=== PATIENT | female | born 1945 | race Caucasian/White ===

== ENCOUNTER 2022-04-01 07:23 | Inpatient (IN) | payer MEDICARE, MEDICAID ==
[~2022-04-01] VITALS: Ht 162.6 cm; Wt 81.6 kg
[2022-04-01] MEDS ORDERED: CEFAZOLIN SOD 2 GM in D5W 50 ML IV ONE (07:45)
[2022-04-01] MEDS ORDERED: INSULIN REGULAR, HUMAN 100 UNITS/ML, 3 ML VIAL (humuLIN R) SUBCUT PRN (10:45)
[2022-04-01] MEDS ORDERED: METOCLOPRAMIDE HCL 10 MG/2 ML VIAL IVP PRN ×2 (10:45→11:45)
[2022-04-01] MEDS ORDERED: NALOXONE HCL 0.4 MG/ML AMP (NARCAN) IVP PRN ×4 (10:45→11:45)
[2022-04-01] MEDS ORDERED: D5W 1,000 ML IV PRN (10:45)
[2022-04-01] MEDS ORDERED: GLUCOSE (DEXTROSE) ORAL GEL -Adults PO PRN (10:45)
[2022-04-01] MEDS ORDERED: BISACODYL 10 MG/SUPPOSITORY RC PRN (10:45)
[2022-04-01] MEDS ORDERED: DIPHENHYDRAMINE HCL 25 MG CAPSULE PO PRN (10:45)
[2022-04-01] MEDS ORDERED: LACTULOSE 20 GM/30 ML UDC PO PRN (10:45)
[2022-04-01] MEDS ORDERED: ACETAMINOPHEN I.V. 1000 MG 100 ML IV ONE (10:48)
[2022-04-01] MEDS ORDERED: BUPIVACAINE /DEX PF 0.75% SPINAL 2 ML AMP INJ ONE (10:52)
[2022-04-01] MEDS ORDERED: TRANEXAMIC ACID 1,000 MG/10 ML VIAL IV ONE (10:52)
[2022-04-01] MEDS ORDERED: KETOROLAC TROMETHAMINE 30 MG VIAL IVP ONE (10:52)
[2022-04-01] MEDS ORDERED: D5LR 1,000 ML IV.SOLN IV ONE (10:52)
[2022-04-01] MEDS ORDERED: NS IRRIG SOLN 1000 ML IR ONE (10:52)
[2022-04-01] MEDS ORDERED: MIDAZOLAM HCL 5 MG/5 ML VIAL IVP ONE (10:52)
[2022-04-01] MEDS ORDERED: MORPHINE SULFATE 10MG/10ML PF AMP EP ONE (10:52)
[2022-04-01] MEDS ORDERED: BUPIVACAINE /PF 0.25% 30 ML VIAL INJ ONE (10:52)
[2022-04-01] MEDS ORDERED: ONDANSETRON HCL 4 MG/2 ML VIAL IVP ONE (10:52)
[2022-04-01] MEDS ORDERED: BUPIVACAINE /EPINEPHRINE/PF 0.25% 30 ML VIAL INJ ONE (10:52)
[2022-04-01] MEDS ORDERED: NS 1000 ML IV.SOLN IV ONE (10:52)
[2022-04-01] MEDS ORDERED: LORATADINE 10 MG TABLET PO PRN (11:00)
[2022-04-01] MEDS ORDERED: oxyCODONE HCL 5 MG TABLET PO PRN ×2 (11:00)
[2022-04-01] MEDS ORDERED: traMADol HCL HCL 50 MG TABLET (ULTRAM) PO PRN (11:00)
[2022-04-01] MEDS ORDERED: HYDROmorphone 1 MG/ML INJ. CARTRIDGE IVP PRN ×5 (11:00→11:45)
[2022-04-01] MEDS ORDERED: ONDANSETRON HCL 4 MG/2 ML VIAL IVP PRN ×2 (11:45)
[2022-04-01] MEDS ORDERED: hydrALAZINE HCL 20 MG/ML VIAL IVP PRN (11:45)
[2022-04-01] MEDS ORDERED: DIPHENHYDRAMINE INJ 50 MG/ML VIAL IVP PRN (11:45)
[2022-04-01] MEDS ORDERED: MEPERIDINE HCL/PF 25 MG/ML DISP.SYRIN IVP PRN (11:45)
[2022-04-01] MEDS ORDERED: LABETALOL 100 MG/ 20ML VIAL IVP PRN (11:45)
[2022-04-01] MEDS ORDERED: LOSA100T3 PO ×2 (12:37→14:40)
[2022-04-01] MEDS ORDERED: GLIP5TAB13 PO (12:37)
[2022-04-01] MEDS ORDERED: NOR10 PO ×2 (12:37→14:40)
[2022-04-01] MEDS ORDERED: LEVO75TA7 PO ×2 (12:37→14:40)
[2022-04-01] MEDS ORDERED: METO25TA3 PO (12:37)
[2022-04-01] MEDS ORDERED: INSU100I26 SQ (12:37)
[2022-04-01] MEDS ORDERED: GLIP10TA11 PO (12:37)
[2022-04-01] MEDS ORDERED: BIMA2.5D5 OP (12:37)
[2022-04-01] MEDS ORDERED: DORZ10DR10 EACH EYE ×2 (12:37→14:40)
[2022-04-01] MEDS ORDERED: ONDANSETRON HCL 4 MG/2 ML VIAL ONE (14:16)
[2022-04-01] MEDS ORDERED: BIMA2.5D5 BOTH EYES (14:40)
[2022-04-01] MEDS ORDERED: METO25TA6 PO (14:40)
[2022-04-01 17:13] VITALS: BP_SYST 141
[2022-04-01 17:51] VITALS: BP_SYST 141
[2022-04-01] MEDS: ceFAZolin SODIUM 2 GM in D5W 50 ML IV SCH (19:15)
[2022-04-01] MEDS: SENNOSIDES/DOCUSATE SODIUM 1 TAB TABLET(SENOKOT-S) PO SCH (21:00)
[2022-04-01] MEDS: KETOROLAC TROMETHAMINE 10 MG TABLET (TORADOL) PO SCH (22:00)
[2022-04-01] MEDS: ACETAMINOPHEN 500 MG TABLET PO SCH (22:36)
[2022-04-01] MEDS: LR 1,000 ML IV SCH (22:47)
[2022-04-02 00:40] VITALS: BP_SYST 126
[2022-04-02] MEDS: ceFAZolin SODIUM 2 GM in D5W 50 ML IV SCH (03:32)
[2022-04-02] MEDS: KETOROLAC TROMETHAMINE 10 MG TABLET (TORADOL) PO SCH (06:00)
[2022-04-02] MEDS: ACETAMINOPHEN 500 MG TABLET PO SCH ×2 (06:37→14:59)
[2022-04-02 07:07] LABS: ALANINE AMINOTRANSFERASE 18 U/L (12-78); ALBUMIN 2.8 g/dL (3.4-4.8); ANION GAP 3 (5-15); ASPARTATE AMINOTRANSFERASE 17 U/L (10-37); CALCIUM 8.3 mg/dL (8.4-11.0); CHLORIDE 104 mmol/L (98-107); CREATININE 0.82 mg/dL (0.55-1.30); GLUCOSE 159 mg/dL (70-99); TOTAL BILIRUBIN 0.4 mg/dL (0.0-1.0); UREA NITROGEN, BLOOD 12 mg/dL (8-21)
[2022-04-02 07:08] LABS: BASOPHILS % (AUTO) 0.2 % (0.0-2.0); EOSINOPHILS % (AUTO) 0.4 % (0.0-4.0); HEMATOCRIT 34.6 % (36-48); HEMOGLOBIN 11.6 g/dL (12.0-16.0); LYMPHOCYTES # (AUTO) 1.3 K/uL (1.0-5.5); MEAN CORPUSCULAR HEMOGLOBIN 31 pg (27-31); MEAN CORPUSCULAR HGB CONC 34 % (32-36); MEAN CORPUSCULAR VOLUME 94 fL (79.0-98.0); MONOCYTES # (AUTO) 0.7 K/uL (0.0-1.0); MONOCYTES % (AUTO) 7.5 % (1.7-9.3); NEUTROPHILS % (AUTO) 77.9 % (40.0-70.0); PLATELET COUNT (AUTO) 136 K/uL (130-430); RED CELL DISTRIBUTION WIDTH 13.8 % (9.0-15.0)
[2022-04-02 08:06] VITALS: BP_SYST 128
[2022-04-02] MEDS ORDERED: ASPIRIN 81 MG TAB.CHEW PO SCH (09:00)
[2022-04-02] MEDS: SENNOSIDES/DOCUSATE SODIUM 1 TAB TABLET(SENOKOT-S) PO SCH (09:51)
[2022-04-02] MEDS ORDERED: CELECOXIB 200 MG CAPSULE PO SCH (11:00)
[2022-04-02 11:36] VITALS: BP_SYST 171
[2022-04-02] MEDS: LR 1,000 ML IV SCH (11:37)
[2022-04-02 16:30] VITALS: BP_SYST 156
== END 2022-04-02 17:05 | disposition home health service (06) | DRG 470 ==
LOC: SMU 07:23
PROVIDERS: ADMIT Student in an Organized Health Care Education/Training Program; ATTEND Student in an Organized Health Care Education/Training Program
PROC: 0SRC0J9 Replacement of Right Knee Joint with Synthetic Substitute, Cemented, Open Approach (ICD-10-PCS; principal; 2022-04-01 11:01)
DX: M17.11 Unilateral primary osteoarthritis, right knee (principal); Z20.822 Contact with and (suspected) exposure to COVID-19
CPT/HCPCS: 36415; 73560-TC; 80053; 82962; 85025; 87081; 88305; 88311; 96379; 97116-GP; C1713; C1776; J0131; J0690; J1885; J2250; J2274; J2405; J3490; J7030; J7060; J7120; U0003

== ENCOUNTER 2022-09-09 05:30 | Inpatient (IN) | payer MEDICARE, MEDICAID ==
[~2022-09-09] VITALS: Ht 140 cm; Wt 87.5 kg
[~2022-09-09 05:30] MED LIST: BIMA2.5D5 OP; DORZ10DR10 EACH EYE; LEVO75TA7 PO; LOSA100T4 PO; METO25TA6 PO; NOR10 PO
[2022-09-09] MEDS ORDERED: oxyCODONE HCL 10 MG TAB.ER.12H PO ONE ×2 (07:00→07:14)
[2022-09-09] MEDS ORDERED: CELECOXIB 200 MG CAPSULE PO ONE (07:00)
[2022-09-09] MEDS ORDERED: ACETAMINOPHEN 500 MG TABLET PO ONE (07:00)
[2022-09-09] MEDS ORDERED: GABAPENTIN 300 MG CAPSULE PO ONE (07:00)
[2022-09-09] MEDS ORDERED: TRANEXAMIC ACID 1,000 MG/10 ML VIAL IV ONE (07:00)
[2022-09-09] MEDS ORDERED: SCOPOLAMINE HYDROBROMIDE 1 MG PATCH .72 H (TRANSDERM-SCOP) TD ONE ×2 (07:00→07:12)
[2022-09-09] MEDS ORDERED: ACETAMINOPHEN 500 MG TABLET ONE (07:12)
[2022-09-09] MEDS ORDERED: CELECOXIB 200 MG CAPSULE ONE (07:13)
[2022-09-09] MEDS ORDERED: GABAPENTIN 300 MG CAPSULE ONE (07:14)
[2022-09-09] MEDS ORDERED: CEFAZOLIN 2 GM IVPB PREMIX 50 ML IV ONE (07:20)
[2022-09-09] MEDS ORDERED: GLUCOSE (DEXTROSE) ORAL GEL -Adults PO PRN (07:30)
[2022-09-09] MEDS ORDERED: DIPHENHYDRAMINE HCL 25 MG CAPSULE PO PRN (07:30)
[2022-09-09] MEDS ORDERED: METOCLOPRAMIDE HCL 10 MG/2 ML VIAL IVP PRN (07:30)
[2022-09-09] MEDS ORDERED: BISACODYL 10 MG/SUPPOSITORY RC PRN (07:30)
[2022-09-09] MEDS ORDERED: D5W 1,000 ML IV PRN (07:30)
[2022-09-09] MEDS ORDERED: NALOXONE HCL 0.4 MG/ML AMP (NARCAN) IVP PRN ×3 (07:30)
[2022-09-09] MEDS ORDERED: LACTULOSE 20 GM/30 ML UDC PO PRN (07:30)
[2022-09-09] MEDS ORDERED: DEXTROSE 50% JECT 50 ML DISP.SYRIN IVP PRN (07:30)
[2022-09-09] MEDS ORDERED: VANCOMYCIN HCL 1000 MG/VIAL IV ONE (07:34)
[2022-09-09] MEDS ORDERED: NS 1000 ML IV.SOLN IV ONE (07:34)
[2022-09-09] MEDS ORDERED: MIDAZOLAM HCL 2 MG/2 ML VIAL (VERSED) ONE (07:34)
[2022-09-09] MEDS ORDERED: TRANEXAMIC ACID 1,000 MG/10 ML VIAL ONE (07:34)
[2022-09-09] MEDS ORDERED: D5/0.45 NS 1,000 ML IV.SOLN IV ONE (07:34)
[2022-09-09] MEDS ORDERED: PROPOFOL 200MG/ 20ML VIAL (DIPRIVAN) IV ONE (07:34)
[2022-09-09] MEDS ORDERED: fentaNYL CITRATE/PF 100 MCG/2 ML AMP ONE (07:34)
[2022-09-09] MEDS ORDERED: BUPIVACAINE /PF 0.25% 30 ML VIAL INJ ONE (07:34)
[2022-09-09] MEDS ORDERED: NS IRRIG SOLN 1000 ML IR ONE (07:34)
[2022-09-09] MEDS ORDERED: WATER FOR IRRIGATION,STERILE 1,000 ML IRRIG.SOLN IR ONE (07:34)
[2022-09-09] MEDS ORDERED: CEFAZOLIN SOD 2 GM in D5W 50 ML IV ONE (07:45)
[2022-09-09] MEDS ORDERED: NOR10 PO (09:10)
[2022-09-09] MEDS ORDERED: GLIP10TA11 PO (09:10)
[2022-09-09] MEDS ORDERED: LOSA100T4 PO (09:10)
[2022-09-09] MEDS ORDERED: LEVO13CA4 PO (09:10)
[2022-09-09] MEDS ORDERED: INSU100V9 SQ (09:10)
[2022-09-09] MEDS: NACL 0.9% 1,000 ML IV SCH ×3 (10:15→14:15)
[2022-09-09] MEDS ORDERED: LORATADINE 10 MG TABLET PO PRN (11:00)
[2022-09-09] MEDS ORDERED: HYDROmorphone 1 MG/ML INJ. CARTRIDGE IVP PRN ×3 (11:00)
[2022-09-09] MEDS ORDERED: oxyCODONE HCL 5 MG TABLET PO PRN ×2 (11:00)
[2022-09-09] MEDS ORDERED: traMADol HCL HCL 50 MG TABLET (ULTRAM) PO PRN (11:00)
[2022-09-09 11:30] VITALS: BP_SYST 148
--- NOTE | 2022-09-09 11:30 | NUR ---
Admission to floor Pt arrived on floor at 1115am from PACU via bed. Pt was oriented to room and nursing routines/procedures. Questions/concerns were answered. Received report from BEAM PRESS OPERATOR. Call light within reach. Left knee surgical dressing CDI with Polar ice. SCD's on bilaterally.
[2022-09-09] MEDS ORDERED: ONDANSETRON HCL 4 MG/2 ML VIAL IVP PRN (11:45)
[2022-09-09] MEDS: ceFAZolin SODIUM 2 GM in D5W 50 ML IV SCH ×2 (12:11→18:23)
--- NOTE | 2022-09-09 13:00 | NUR ---
Note' Pt denies any severe pain/discomfort on left knee. Pt was given bedpan and had large amount of urine output. Pt's daughter Lisa at bedside. Pt has lunch tray ([employer] diet).
[2022-09-09 13:44] VITALS: BP_SYST 135
[2022-09-09] MEDS: ACETAMINOPHEN 500 MG TABLET PO SCH ×2 (14:04→21:03)
[2022-09-09] MEDS: KETOROLAC TROMETHAMINE 10 MG TABLET (TORADOL) PO SCH ×2 (14:05→21:03)
[2022-09-09 15:15] VITALS: BP_SYST 150
--- NOTE | 2022-09-09 15:30 | NUR ---
PT Pt OOB with PT and FWW and ambulated in room. Tolerated ambulation well. Pt's daughter at bedside and no needs noted. Call light within reach.
--- NOTE | 2022-09-09 18:45 | NUR ---
End of shift Pt sitting up in bed eating her dinner. Left knee dressing CDI with Polar ice. Neuro in left foot/leg WNL. Pt was checked on q1' and PRN all shift for needs and care. pain tolerable at this time. Pt's bed in low position and bed alarm on. Side rails raised and no needs noted. Pt's family at bedside. Call light within reach. Pt has Pure wick. IV in R hand intact and patent infusing IVF's well.
[2022-09-09 19:54] VITALS: BP_SYST 140
--- NOTE | 2022-09-09 20:00 | NUR ---
Patient resting feel sore left knee Arthroplasty, tolerable as verbalize , able to wiggle toes light t touch , left knee dressing dry and intact, safety/fall precaution initiated.
[2022-09-09] MEDS: SENNOSIDES/DOCUSATE SODIUM 1 TAB TABLET(SENOKOT-S) PO SCH ×2 (21:00→21:02)
[2022-09-09] MEDS ORDERED: LATANOPROST 2.5 ML DROPS (XALATAN) OP SCH (21:00)
[2022-09-10 01:09] VITALS: BP_SYST 148
[2022-09-10] MEDS: ceFAZolin SODIUM 2 GM in D5W 50 ML IV SCH (02:19)
[2022-09-10] MEDS: NACL 0.9% 1,000 ML IV SCH ×2 (02:19→17:32)
[2022-09-10] MEDS: KETOROLAC TROMETHAMINE 10 MG TABLET (TORADOL) PO SCH (05:34)
[2022-09-10] MEDS: ACETAMINOPHEN 500 MG TABLET PO SCH (05:34)
--- NOTE | 2022-09-10 06:30 | NUR ---
Patient seen and examined by Dr. MICHELLE , cold pac polar care removed by Dr. MICHELLE , instructed to put later to give rest for the knee , left ankle kept supported by pillow not behind the knee, pain is controlled.
[2022-09-10] MEDS ORDERED: ASA81 PO (06:42)
[2022-09-10] MEDS: INSULIN REGULAR, HUMAN 100 UNITS/ML, 3 ML VIAL (humuLIN R) SUBCUT PRN ×2 (06:46→11:52)
[2022-09-10 08:01] LABS: BASOPHILS % (AUTO) 0.6 % (0.0-2.0); EOSINOPHILS # (AUTO) 0.3 K/uL (0.0-0.4); HEMATOCRIT 34.2 % (36-48); HEMOGLOBIN 11.4 g/dL (12.0-16.0); LYMPHOCYTES # (AUTO) 1.1 K/uL (1.0-5.5); LYMPHOCYTES % (AUTO) 16.8 % (20.5-51.5); MEAN CORPUSCULAR HEMOGLOBIN 31 pg (27-31); MEAN CORPUSCULAR HGB CONC 33 % (32-36); MEAN CORPUSCULAR VOLUME 92 fL (79.0-98.0); MONOCYTES # (AUTO) 0.5 K/uL (0.0-1.0); MONOCYTES % (AUTO) 7.3 % (1.7-9.3); NEUTROPHILS # (AUTO) 4.7 K/uL (1.8-7.7); NEUTROPHILS % (AUTO) 71.3 % (40.0-70.0); PLATELET COUNT (AUTO) 119 K/uL (130-430); RED BLOOD CELL COUNT(AUTO) 3.73 MIL/uL (4.2-6.2); RED CELL DISTRIBUTION WIDTH 14.5 % (9.0-15.0); WHITE BLOOD COUNT (AUTO) 6.5 K/uL (4.8-10.8)
--- NOTE | 2022-09-10 08:05 | NUR ---
OPENING NOTES: RECEIVED BEDSIDE SBAR FROM PM SHIFT NURSE, NO S/S OF DISTRESS, NON LABOR BREATHING, BED AT LOW AND LOCKED POSITION, ABLE TO MAKE NEEDS KNOWN, PATIENT RESTING IN BED, WILL CONT TO MONITOR PATIENT PER ORDERS.
[2022-09-10 08:17] LABS: ALANINE AMINOTRANSFERASE 13 U/L (12-78); ALBUMIN 2.8 g/dL (3.4-4.8); ANION GAP 5 (5-15); ASPARTATE AMINOTRANSFERASE 14 U/L (10-37); CALCIUM 7.7 mg/dL (8.4-11.0); CHLORIDE 105 mmol/L (98-107); CREATININE 0.83 mg/dL (0.55-1.30); GLUCOSE 161 mg/dL (70-99); TOTAL BILIRUBIN 0.6 mg/dL (0.0-1.0); UREA NITROGEN, BLOOD 13 mg/dL (8-21)
[2022-09-10] MEDS ORDERED: ASPIRIN 81 MG TAB.CHEW PO SCH (09:00)
[2022-09-10] MEDS ORDERED: METOPROLOL TARTRATE 25 MG TABLET PO SCH (09:00)
[2022-09-10] MEDS ORDERED: LEVOTHYROXINE SODIUM 0.075 MG TABLET PO SCH (09:00)
[2022-09-10] MEDS ORDERED: amLODIPine BESYLATE 10 MG TABLET PO SCH (09:00)
[2022-09-10] MEDS: SENNOSIDES/DOCUSATE SODIUM 1 TAB TABLET(SENOKOT-S) PO SCH (09:00)
[2022-09-10] MEDS ORDERED: CELECOXIB 200 MG CAPSULE PO SCH (11:00)
[2022-09-10 12:04] VITALS: BP_SYST 154
--- NOTE | 2022-09-10 13:00 | NUR ---
D/C Patient Patient given medication reconciliation form and D/C instructions. Exit Care provided. Patient verbalized understanding. MD discussed with patient the results and treatment provided. Ambulatory with steady gait for discharge to home. Patient in stable condition, ID band removed. IV catheter removed, intact and dressing applied, no active bleeding. Rx CALLED IN. Patient educated on pain management. All belongings sent with patient.
[2022-09-10 13:02] VITALS: BP_SYST 136
--- NOTE | 2022-09-10 14:54 | NUR ---
PHYSICAL THERAPY CO-SIGN The Physical Therapy Progress Notes documented by Payroll Master have been reviewed. Reviewed/Co-Signed by: Parish Reyes Documentation Done by:MOUNIKA ADAMS Addendum: 09/10/22 at 1454 by Parish Reyes PT Amended: Links added.
== END 2022-09-10 13:00 | disposition home health service (06) | DRG 470 ==
LOC: SMU 05:30
PROVIDERS: ADMIT Student in an Organized Health Care Education/Training Program; ATTEND Student in an Organized Health Care Education/Training Program
PROC: 0SRD0J9 Replacement of Left Knee Joint with Synthetic Substitute, Cemented, Open Approach (ICD-10-PCS; principal; 2022-09-09 07:32)
DX: M17.12 Unilateral primary osteoarthritis, left knee (principal)
CPT/HCPCS: 36415; 73560-TC; 80053; 82948; 82962; 85025; 87081; 88305; 88311; 96379; 97110-GP; 97116-GP; 97163-GP; 97530-GP; C1713; C1776; J0690; J1170; J2704; J3010; J3370; J3465; J3490; J7030; J7060

== ENCOUNTER 2022-09-19 13:38 | Emergency (ER) | payer MEDICARE, MEDICAID ==
[~2022-09-19] VITALS: Ht 162.6 cm; Wt 88.5 kg
[~2022-09-19 13:38] MED LIST changes: +ASA81 PO; +GLIP10TA11 PO; +INSU100V9 SQ; +LEVO13CA4 PO
[2022-09-19 13:57] VITALS: BP_SYST 158
[2022-09-19] MEDS ORDERED: KETOROLAC TROMETHAMINE 30 MG VIAL IM ONE (14:45)
[2022-09-19 16:46] VITALS: BP_SYST 158
== END 2022-09-19 16:46 | disposition home or self-care (01) ==
LOC: SED 13:38
DX: M79.662 Pain in left lower leg (principal); Z96.652 Presence of left artificial knee joint; Z79.899 Other long term (current) drug therapy
CPT/HCPCS: 99285; 93971; 96372; J1885